=== PATIENT | female | born 1960 | race Caucasian/White ===

== ENCOUNTER 2018-03-09 15:49 | Outpatient (CLI) | payer BC ==
[~2018-03-09 15:49] MED LIST: ASPI-586 PO; ATOR10TA PO; CLOP75TA69 PO; LEVO50TA6 PO; METO-351 PO; OMEG1CAP58 PO; POLY17PO6 PO; PROG100C6 PO; THYR16.2 PO; [UNRECOGNIZED DRUG - CODE] MC
== END 2018-03-09 15:53 | disposition home or self-care (01) ==
LOC: SLEEP 15:49
PROVIDERS: ATTEND Nurse Practitioner Family
DX: G47.10 Hypersomnia, unspecified (principal); I63.9 Cerebral infarction, unspecified; R00.2 Palpitations

== ENCOUNTER → 2018-03-27 | Outpatient (CLI) | payer BC ==
[~2018-03-27] MED LIST changes: +RT-ALBUTEROL SULF 2.5 MG/3 ML PRE-MIX VIAL INH ONE
== END ==
LOC: RT 08:19
PROVIDERS: ATTEND Nurse Practitioner Family
DX: I63.9 Cerebral infarction, unspecified (principal); R06.00 Dyspnea, unspecified
CPT/HCPCS: 94060; 94726; 94729

== ENCOUNTER → 2018-05-01 | Outpatient (CLI) | payer BC ==
[~2018-05-01] VITALS: Ht 170.2 cm; Wt 70.3 kg
[~2018-05-01] MED LIST changes: +CATHETER FLUSH 10 ML SYR IV PRN; -RT-ALBUTEROL SULF 2.5 MG/3 ML PRE-MIX VIAL INH ONE
--- NOTE | 2018-05-01 13:12 | STRESS TEST ---
DATE OF SERVICE: 05/01/2018 EXERCISE MYOVIEW STRESS TEST REPORT REFERRING PHYSICIAN: Dr. Paul Posada. Baseline heart rate is 67, baseline blood pressure 139/95. Baseline EKG is sinus rhythm with no ischemic changes. In summary, the patient was injected with 9.03 mCi of technetium-99 Myoview and the resting images were obtained. Then, the patient started exercising with a baseline heart rate, blood pressure and EKG mentioned above. At peak stress level, the patient was injected with 27.5 mCi of technetium-99 Myoview. The patient was able to exercise for a total of 8 minutes and 7 seconds on standard Trip protocol. With peak exercise level, blood pressure was 201/107. EKG was showing minimal nondiagnostic changes. During recovery, heart rate and blood pressure returned to baseline. EKG returned to baseline. The resting and stressed images were reviewed and compared in the short axis, horizontal long axis, and vertical long axis views. Review of the images showed extracardiac attenuation including breast attenuation with no significant ischemia or infarction noted. The stress images are significantly better than the resting images. SSS is 1, SDS 1, TID value 0.98. On the gated images, the left ventricle appeared to be in normal size with normal contractility. Calculated ejection fraction 62%. CONCLUSION: 1. Good exercise tolerance, a total of 8 minutes on standard Trip protocol, total of 9.7 METS achieving 93% of maximum expected heart rate. 2. Hypertensive response to exercise, returned to baseline during recovery. 3. Minimal nondiagnostic EKG changes with exercise returned to baseline during recovery. 4. Extracardiac attenuation with no significant ischemia or infarction on SPECT images. 5. Normal left ventricular size with normal contractility. Calculated ejection fraction 62%. Job ID: [id number] DocumentID: [id number] Dictated Date: 05/01/2018 11:35:49 Clinic Administrator Date: 05/01/2018 13:11:49 Dictated By: ANGELIQUE MURPHY MD
== END ==
LOC: CARD 07:45
PROVIDERS: ATTEND Physician Assistant
DX: I63.9 Cerebral infarction, unspecified (principal); I10 Essential (primary) hypertension; E78.2 Mixed hyperlipidemia; R00.2 Palpitations
CPT/HCPCS: 78452; 93017

== ENCOUNTER 2018-11-01 13:18 | Outpatient (RCR) | payer BC ==
[~2018-11-01 13:18] MED LIST changes: -CATHETER FLUSH 10 ML SYR IV PRN
== END 2018-11-07 | disposition home or self-care (01) ==
PROVIDERS: ATTEND Orthopaedic Surgery
DX: M75.21 Bicipital tendinitis, right shoulder (principal)

== ENCOUNTER → 2020-03-07 | Outpatient (CLI) | payer BC ==
[~2020-03-07] MED LIST changes: +PROG100C11 PO; -PROG100C6 PO
== END ==
LOC: CARD 13:54
PROVIDERS: ATTEND Physician Assistant
DX: I35.8 Other nonrheumatic aortic valve disorders (principal); E78.2 Mixed hyperlipidemia; I10 Essential (primary) hypertension; I63.9 Cerebral infarction, unspecified
CPT/HCPCS: 93306

== ENCOUNTER → 2020-03-10 | Outpatient (CLI) | payer BC ==
[~2020-03-10] MED LIST changes: +CATHETER FLUSH 10 ML SYR IV PRN
[2020-03-10 09:10] VITALS: BP 146/89
--- NOTE | 2020-03-10 12:46 | Cardiology Stress Test Report ---
Stress Test Report Date of Procedure/Referring: Date of Procedure: Mar 10, 2020 PCP Omaira Syed Admitting Physician Onel Fox DO Indications: Chest pain Baseline Heart Rate: 65 Baseline Blood Pressure: Blood Pressure Systolic: 146 Blood Pressure Diastolic: 89 Vital Signs Date Time Temp Pulse Resp B/P (MAP) Pulse Ox O2 Delivery O2 Flow Rate FiO2 03/10/20 09:10 69 146/89 (108) 98 Baseline Vital Signs Vital Signs Date Time Temp Pulse Resp B/P (MAP) Pulse Ox O2 Delivery O2 Flow Rate FiO2 03/10/20 09:10 69 146/89 (108) 98 Baseline EKG: Baseline EKG: normal sinus rhythm Summary: After explaining the procedure and details to the patient, she signed the consent and was brought to the stress nuclear laboratory. Patient exercised on standard Trip protocol, EKG, heart rate and blood pressure were monitored continuously, resting and stress doses of radio tracer were injected, imaging was acquired and reviewed in the short axis, horizontal long axis and vertical long axis views Patient was able to exercise for a total of [ ] minutes on Trip protocol, METs [ ] Maximum heart rate [ ] Maximum blood pressure [ ] Stress EKG, Minimal nondiagnostic changes Recovery EKG, Return to baseline TID: 0.93 SSS: 1 SDS: 1 EF: 67 Conclusion: 1. Good exercise tolerance for total of 8 minutes on standard Trip protocol, 9 .7 METs achieving 88 percent of maximum expected heart rate 2. Hypertensive response to exercise with peak blood pressure 195/95 return to baseline during recovery 3. Minimal nondiagnostic EKG changes with exercise returned to baseline during recovery 4. No ischemia or infarction on SPECT images 5. Normal left ventricular size, EF 67 percent ANGELIQUE MURPHY MD Mar 10, 2020 12:46
== END ==
LOC: CARD 07:30
PROVIDERS: ATTEND Physician Assistant
DX: I10 Essential (primary) hypertension (principal); I63.9 Cerebral infarction, unspecified; E78.2 Mixed hyperlipidemia
CPT/HCPCS: 78452; 93017; A9502

== ENCOUNTER → 2020-03-27 | Outpatient (CLI) | payer BC ==
[~2020-03-27] MED LIST changes: -CATHETER FLUSH 10 ML SYR IV PRN; +LIDOCAINE 1% INJ 20 ML 20 ML VIAL INJ ONE
--- NOTE | 2020-03-27 14:48 | Diagnostic Imaging Report ---
INDICATION: Right thyroid nodule. Patient presented for ultrasound-guided biopsy. Patient brought to the procedure room placed on table in supine position. Ultrasound imaging of the right neck was performed to evaluate appropriate entry site. The right neck was then prepped and draped in usual sterile fashion. Small amount of 1% lidocaine was utilized for local anesthesia. A total of 4 passes were made into the solid right lobe thyroid nodule utilizing 25-gauge needles and fine-needle aspiration technique. A single pass was made with a Rotex needle and a Rotex biopsy was performed. Patient tolerated procedure well and left the department in stable condition. IMPRESSION: Successful right thyroid nodule fine needle aspiration and Rotex biopsy. Pathology results are currently pending. Dictated by: Dictated on workstation # [id number]
== END ==
LOC: RAD 12:29
PROVIDERS: ATTEND Otolaryngology Otolaryngology/Facial Plastic Surgery
DX: E04.1 Nontoxic single thyroid nodule (principal)
CPT/HCPCS: 88173

== ENCOUNTER → 2021-02-12 | Outpatient (CLI) | payer BC ==
[~2021-02-12] VITALS: Ht 170.2 cm; Wt 70.5 kg
[~2021-02-12] MED LIST changes: +LIDOCAINE 1% INJ 20 ML 20 ML VIAL ONE
--- NOTE | 2021-02-12 14:57 | Diagnostic Imaging Report ---
Indication: Left thyroid nodule. Patient presents for ultrasound guided fine needle aspiration and Rotex biopsy. Patient brought to the procedure and placed on table in the supine position. Ultrasound imaging of the left neck was performed evaluate appropriate entry site. Left neck was then prepped and draped in usual sterile fashion. Small amount of 1% lidocaine was utilized for local anesthesia. Total of 4 passes were made into the partially calcified nodule in the left lobe of the thyroid utilizing 25-gauge needles and final aspiration technique. A single pass was made with a Rotex needle and Rotex biopsy was performed. Patient tolerated the procedure well and left the department in stable condition. IMPRESSION: Successful ultrasound guided fine needle aspiration and Rotex biopsy of partially calcite left lobe thyroid nodule. Pathology results are currently pending. Dictated by: Dictated on workstation # [id number]
== END ==
LOC: RAD 13:00
PROVIDERS: ATTEND Otolaryngology Otolaryngology/Facial Plastic Surgery
DX: E04.1 Nontoxic single thyroid nodule (principal)
CPT/HCPCS: 10005; 88173; 88305

== ENCOUNTER → 2021-09-14 | Outpatient (CLI) | payer BC ==
[~2021-09-14] MED LIST changes: -LIDOCAINE 1% INJ 20 ML 20 ML VIAL INJ ONE; -LIDOCAINE 1% INJ 20 ML 20 ML VIAL ONE; +RT-ALBUTEROL SULF 2.5 MG/3 ML PRE-MIX VIAL INH ONE
== END ==
LOC: RT 09:15
PROVIDERS: ATTEND Internal Medicine Critical Care Medicine
DX: J45.909 Unspecified asthma, uncomplicated (principal)
CPT/HCPCS: 94060; 94726; 94729

== ENCOUNTER → 2022-02-02 | Outpatient (CLI) | payer BC ==
[~2022-02-02] MED LIST changes: -RT-ALBUTEROL SULF 2.5 MG/3 ML PRE-MIX VIAL INH ONE
--- NOTE | 2022-02-02 15:10 | Diagnostic Imaging Report ---
PROCEDURE: US Thyroid. TECHNIQUE: Multiple Real-time grayscale images were obtained of the thyroid in various projections. INDICATION: Thyroid nodules, followup. The patient has had a left thyroid nodule biopsy 1 year earlier. COMPARISON: Correlation is made with an outside thyroid ultrasound from 01/13/2021. FINDINGS: The right lobe of the thyroid measures 6.4 x 2.8 x 2.7 cm and the left lobe measures 4.7 x 2.0 x 1.9 cm. The isthmus is 5 mm in thickness. Both lobes show marked parenchymal heterogeneity. There are nodules in both lobes. The previously noted nodule in the upper pole of the left lobe measures 1.5 x 1.1 x 1.5 cm compared with 1.7 x 1.5 x 1.3 cm on the prior exam. The dominant nodule in the upper mid right lobe of the thyroid measures 2.5 x 1.6 x 2.0 cm compared with 2.3 x 1.9 x 2.0 cm on the prior exam. A vague nodule in the mid aspect of the right lobe measures 1.9 x 1.4 x 1.4 cm. This was not measured on the prior study but appears to have been present. It is uncertain if this represents a true nodule versus parenchymal heterogeneity. A cystic nodule on the right measures 1.3 x 0.8 x 1.2 cm. There is a nodule in the isthmus measuring 1.1 x 1.1 x 1.2 cm. IMPRESSION: Bilateral thyroid nodules and thyroid heterogeneity. The previously biopsied nodule in the left lobe is stable. A dominant nodule in the mid right lobe also appears to be similar to the prior examination from 1 year earlier. Continued followup is recommended. Dictated by: Dictated on workstation # [id number]
== END ==
LOC: RAD 13:00
PROVIDERS: ATTEND Otolaryngology Otolaryngology/Facial Plastic Surgery
DX: E04.2 Nontoxic multinodular goiter (principal)
CPT/HCPCS: 76536

== ENCOUNTER → 2023-01-31 | Outpatient (CLI) | payer BC ==
[~2023-01-31] MED LIST changes: +CLOP-31 PO; -CLOP75TA69 PO
--- NOTE | 2023-01-31 10:32 | Diagnostic Imaging Report ---
PROCEDURE: US Thyroid. TECHNIQUE: Multiple real-time grayscale images were obtained of the thyroid in various projections. INDICATION: Followup thyroid nodules. History of biopsy on 02/12/2021. COMPARISON: 02/02/2022. FINDINGS: Both thyroid lobes demonstrate a heterogeneous background echotexture. Color flow Doppler demonstrates normal and symmetric vascularity bilaterally. The right lobe measures 5.4 cm in length, 2.7 cm AP, and 3.0 cm transverse. The left lobe measures 6.1 cm in length, 2.0 cm AP, and 2.9 cm transverse. The isthmus measures 0.4 cm. Hypoechoic part solid part cystic nodule seen in the right lobe of the thyroid measuring 1.3 x 1.2 x 0.8 cm, previously measuring 1.3 x 1.2 x 0.8 cm. A heterogeneous nodule in the superior pole of the left lobe of the thyroid measures 1.5 x 1.0 x 1.2 cm, previously measuring 1.5 x 1.1 x 1.5 cm. No new suspicious nodules are seen. IMPRESSION: 1. Stable multinodular goiter. Based on size criteria and imaging characteristics follow up could be considered in 12 months. Please also refer to the biopsy results to guide followup criteria. Dictated by: Dictated on workstation # [id number]
== END ==
LOC: RAD 07:43
PROVIDERS: ATTEND Otolaryngology Otolaryngology/Facial Plastic Surgery
DX: E04.2 Nontoxic multinodular goiter (principal)
CPT/HCPCS: 76536

== ENCOUNTER → 2023-05-10 | Outpatient (CLI) | payer BC | LOC: RAD 13:45 | PROVIDERS: ATTEND Specialist | DX: Z53.9 Procedure and treatment not carried out, unspecified reason (principal) ==

== ENCOUNTER → 2023-05-10 | Outpatient (CLI) | payer BC ==
--- NOTE | 2023-05-10 16:00 | Diagnostic Imaging Report ---
PROCEDURE: US Renal Bilateral. TECHNIQUE: Multiple real-time grayscale images were obtained over the kidneys in various projections bilaterally. INDICATION: Hematuria Right kidney measures 8.8 x 6.0 x 4.0 cm. Left kidney measures 9.3 x 5.1 x 4.4 cm. There is no mass, calculus or hydronephrosis in either kidney. Urinary bladder appears normal. Both ureteral jets were seen. IMPRESSION: Unremarkable renal ultrasound. Dictated by: Dictated on workstation # [id number]
== END ==
LOC: RAD 14:00
PROVIDERS: ATTEND Specialist
DX: R31.9 Hematuria, unspecified (principal)
CPT/HCPCS: 76770